=== PATIENT | female | born 1990 | race Caucasian/White ===

== ENCOUNTER → 2022-01-11 | Outpatient (CLI) | payer OTHER ==
[~2022-01-11] MED LIST: COLA50CA3 PO; CYCL10TA3 PO; DEPO150I IM; DIPH50CA PO; FLEX10TA2 PO; GASTROGRAFIN SOLUTION 30ML (Q9963) As Ordered ONE; IBUP200C PO; LYRI150C PO; MAGN250T PO; MAPA500T17 PO; NEUR300C PO; PREG50CA PO; SOMA350T PO; ULTR50TA PO; VALI10TA PO; VENTAER IN; VICO5TAB PO; [UNRECOGNIZED DRUG - OTHER] TOP
== END ==
LOC: M RAD 11:25
PROVIDERS: ATTEND Nurse Practitioner Adult Health
DX: R19.8 Other specified symptoms and signs involving the digestive system and abdomen (principal)
CPT/HCPCS: 74176; Q9963